=== PATIENT | female | born 2000 | race Caucasian/White ===

== ENCOUNTER 2018-09-23 07:42 | Day surgery (SDC) | payer BC ==
[2018-09-23] MEDS ORDERED: Propofol 200 MG/20 ML SDV IV ONE (07:43)
[2018-09-23] MEDS ORDERED: Lidocaine 2% 100 MG/5 ML Syringe IVPUSH ONE (07:43)
[2018-09-23] MEDS ORDERED: Lactated Ringers 1,000 ML IV SCH (07:45)
--- NOTE | 2018-09-23 10:24 | PCM.OPNOTE ---
- General Post-Op/Procedure Note Date of Surgery/Procedure: 09/23/18 Operative Procedure(s): egd with biospy Findings: gastroduodenitis Pre Op Diagnosis: epigastric abd pain Post-Op Diagnosis: gastroduodenitis Anesthesia Technique: Moderate Sedation Primary Surgeon: Donta Vee Anesthesia Provider: Jorge Hernandez Pathology: stomach and duodenum Complications: None Condition: Good Free Text/Narrative:: see dictation
--- NOTE | 2018-09-23 11:28 | OR ---
DATE OF OPERATION: 09/23/2018 SURGEON: Donta Vee MD PROCEDURE PERFORMED: Esophagogastroduodenoscopy with cold forceps biopsy. PREOPERATIVE DIAGNOSIS: History of epigastric abdominal pain. POSTOPERATIVE DIAGNOSES: Gastroduodenitis. INDICATIONS FOR PROCEDURE: This is a 18-year-old female, who presents with a complaint of some epigastric abdominal discomfort. She was offered and accepted an EGD. DESCRIPTION OF OPERATION: After an excellent IV sedation was administered, bite block was inserted. The flexible endoscope was passed without difficulty down the esophagus and into the stomach. Stomach was insufflated. Scope passed through the pylorus, second portion of duodenum, and slowly withdrawn. The following findings were noted. In the first portion of the duodenum, there appeared to be a patchy area of inflammation. Biopsies were taken and submitted in the container. The stomach demonstrated some diffuse gastritis and multiple biopsies were taken. There was also what appeared to be a hyperplastic polyp, which was submitted in the same container. The esophagus was unremarkable. The patient tolerated the procedure well, was taken to recovery room in good condition. Results by letter. /[id number] /MODL
== END 2018-09-23 11:28 | disposition home or self-care (01) ==
LOC: FB.SDS 07:42
PROVIDERS: ATTEND Surgery
DX: K29.50 Unspecified chronic gastritis without bleeding (principal); K29.90 Gastroduodenitis, unspecified, without bleeding
CPT/HCPCS: 43239; 81025; 88305; 88342; J2001; J2704; J7120

== ENCOUNTER 2019-03-12 07:07 | Day surgery (SDC) | payer BC ==
[2019-03-12] MEDS ORDERED: Glycopyrrolate 0.2 MG/ML 5 ML MDV IV ONE (07:08)
[2019-03-12] MEDS ORDERED: Lactated Ringers 1,000 ML IV ONE (07:08)
[2019-03-12] MEDS ORDERED: Dexamethasone 4 MG/ML 5 ML MDV IVPUSH ONE (07:08)
[2019-03-12] MEDS ORDERED: fentaNYL 100 MCG/2 ML SDV IV ONE (07:08)
[2019-03-12] MEDS ORDERED: Rocuronium 50 MG/5 ML Vial IV ONE (07:08)
[2019-03-12] MEDS ORDERED: Lidocaine 2% 100 MG/5 ML Syringe IVPUSH ONE (07:08)
[2019-03-12] MEDS ORDERED: Ketorolac 30 MG/ML SDV IVPUSH ONE (07:08)
[2019-03-12] MEDS ORDERED: Midazolam 1 MG/ML 2 ML SDV IV ONE (07:08)
[2019-03-12] MEDS ORDERED: Ondansetron 4 MG Tab.DIS PO ONE (07:08)
[2019-03-12] MEDS ORDERED: Propofol 200 MG/20 ML SDV IV ONE (07:08)
[2019-03-12] MEDS ORDERED: Neostigmine Methylsulfate 10 MG/10 ML MDV IVPUSH ONE (07:08)
[2019-03-12] MEDS ORDERED: Lactated Ringers 1,000 ML IV SCH (07:15)
[2019-03-12] MEDS ORDERED: Sodium Chloride 0.9% 10 ML Syringe FLUSH PRN (07:15)
--- NOTE | 2019-03-12 07:54 | PCM.HP.2 ---
H&P History of Present Illness - General Date of Service: 03/12/19 Admit Problem/Dx: Admission Diagnosis/Problem Admission Diagnosis/Problem Laparoscopic cholecystectomy - History of Present Illness Initial Comments - Free Text/Narative: 18 yo wf with a long standing hx of abd pain. This has been variable in terms of location but has tended to favor the right side. Has undergone multiple endoscopies as well as US. Endoscopic exams have been negative. US at [facility] revealed gallbladder polyps. After much discussion pt want to proceed with lap cholecystectomy as this is the only abnl found. - Related Data Allergies/Adverse Reactions: Allergies Allergy/AdvReac Type Severity Reaction Status Date / Time No Known Allergies Allergy Verified 03/12/19 07:41 Home Medications: Home Meds Norgestrel-Ethinyl Estradiol [Elinest-28 Tablet] 1 tab PO DAILY 09/22/18 [ History] Ondansetron [Zofran ODT] 1 tab PO Q4HR PRN 09/22/18 [History] Clindamycin Phosphate [Cleocin T 1% Lotion] 1 applic TP BID 03/11/19 [History] Pantoprazole Sodium [Protonix] 40 mg PO DAILY 03/11/19 [History] Prochlorperazine Maleate [Compazine] 10 mg PO TID PRN 03/11/19 [History] Rizatriptan [Maxalt YARN EXAMINER] 10 mg PO ASDIRECTED PRN 03/11/19 [History] Topiramate [Topamax] 25 mg PO ASDIRECTED 03/11/19 [History] Tretinoin [Retin-A 0.025% Cream] 1 applic TOP BEDTIME 03/11/19 [History] Past Medical History Cardiovascular History: Reports: Other (See Below) Other Cardiovascular History: SINUS TACHYCARDIA, POTS Gastrointestinal History: Reports: Other (See Below) Other Gastrointestinal History: NAUSEA Musculoskeletal History: Reports: Other (See Below) Other Musculoskeletal History: FEMORAL ACETABULAR IMPINGEMENT - Past Surgical History GI Surgical History: Reports: Appendectomy, Hernia Repair/Other, Other (See Below) Other GI Surgeries/Procedures: DIAGNOSTIC LAPROSCOPY, BIOPSY OF PERITONEUM Musculoskeletal Surgical History: Reports: Arthroscopic Procedure Social & Family History - Caffeine Use Caffeine Use: Reports: None H&P Review of Systems - Review of Systems: Review Of Systems: See Below General: Reports: No Symptoms HEENT: Reports: No Symptoms Pulmonary: Reports: No Symptoms Cardiovascular: Reports: No Symptoms Gastrointestinal: Reports: Abdominal Pain, Diarrhea. Denies: Constipation, Nausea, Vomiting Exam - Exam Exam: See Below - Vital Signs Vital Signs: Last Vital Signs Temp 98.8 F 03/12/19 07:35 Pulse 87 03/12/19 07:35 Resp 18 03/12/19 07:35 BP 117/68 03/12/19 07:35 Pulse Ox 100 03/12/19 07:35 Weight: 67.585 kg - Exam General: Alert, Oriented, Cooperative, Mild Distress HEENT: Conjunctiva Clear, Hearing Intact Lungs: Clear to Auscultation, Normal Respiratory Effort Cardiovascular: Regular Rate, Regular Rhythm GI/Abdominal Exam: Normal Bowel Sounds, Tender (ruq) Back Exam: Normal Inspection Skin: Warm, Dry, Intact *Q Meaningful Use (ADM) - VTE *Q VTE Pharmacological Contraindications *Q: Patient Scheduled Surgery - Problem List (1) Gallbladder polyp SNOMED Code(s): 656036234 ICD Code: K82.4 - CHOLESTEROLOSIS OF GALLBLADDER Status: Acute Current Visit: Yes Problem List Initiated/Reviewed/Updated: Yes Orders Last 24hrs: Active Orders 24 hr Category Date Time Status Patient Status [ADT] Routine ADT 03/12/19 07:15 Ordered Patient to Empty Bladder [RC] ASDIRECTED Care 03/12/19 07:15 Active RT Incentive Spirometry [RC] ASDIRECTED Care 03/12/19 07:15 Active Verify Patient Consent Obtain [RC] ASDIRECTED Care 03/12/19 07:15 Active Nothing Per Oral Diet [DIET] Diet 03/11/19 Dinner Ordered HCG QUALITATIVE,URINE [URCHEM] Routine Lab 03/12/19 07:15 Ordered Lactated Ringers [Ringers, Lactated] 1,000 ml Med 03/12/19 07:15 Active IV ASDIRECTED Sodium Chloride 0.9% [Saline Flush] Med 03/12/19 07:15 Active 10 ml FLUSH ASDIRECTED PRN cefOXitin [Mefoxin in Dextrose,Iso-Osm 1 GM/50 ML] 1 gm Med 03/12/19 08:00 Active Premix Bag 1 bag IV ONETIME Peripheral IV Insertion Adult [OM.PC] Routine Oth 03/12/19 07:15 Ordered Sequential Compression Device [OM.PC] Routine Oth 03/12/19 07:15 Ordered Resuscitation Status Routine Resus Stat 03/11/19 10:52 Ordered Medication Orders Cefoxitin Sodium 1 gm/ Premix 50 mls @ 100 mls/hr IV ONETIME ONE Stop: 03/12/19 08:29 Lactated Ringer's (Ringers, Lactated) 1,000 mls @ 125 mls/hr IV ASDIRECTED [place] Sodium Chloride (Saline Flush) 10 ml FLUSH ASDIRECTED PRN PRN Reason: Keep Vein Open Assessment/Plan Comment:: Plan Lap cholecystectomy. procedures and risks explained to the pt and father to include bleeding infection injury to liver, common bile duct, blood vessels and intestines. She also understands this may not take care of her pain. Expressed understanding and asks us to proceed.
[2019-03-12] MEDS ORDERED: cefOXitin 1 GM Vial IVPUSH ONE (08:00)
[2019-03-12] MEDS ORDERED: cefOXitin 1 GM in Premix Bag 1 BAG IV ONE (08:00)
[2019-03-12] MEDS ORDERED: Bupivacaine 0.5% 30 ML SDV INJECT ONE (09:22)
[2019-03-12] MEDS ORDERED: Lidocaine 1% with EPINEPHrine 1:100,000 20 ML MDV INJECT ONE (09:22)
--- NOTE | 2019-03-12 09:57 | PCM.OPNOTE ---
- General Post-Op/Procedure Note Date of Surgery/Procedure: 03/12/19 Operative Procedure(s): lap cholecystectomy Findings: critical view obtained Pre Op Diagnosis: gallbladder polyp Post-Op Diagnosis: Same Anesthesia Technique: General ET Tube, Local (7 ml 1% lido with epi/0.5% buvipicaine) Primary Surgeon: Donta Vee Anesthesia Provider: Jorge Hernandez Pathology: gallbladder Complications: None Condition: Good Free Text/Narrative:: see dictation
[2019-03-12] MEDS ORDERED: Acetaminophen/HYDROcodone 325-5 MG Tab PO PRN (10:01)
--- NOTE | 2019-03-12 17:19 | OR ---
DATE OF OPERATION: 03/12/2019 SURGEON: Donta Vee MD PROCEDURE PERFORMED: Laparoscopic cholecystectomy. PREOPERATIVE DIAGNOSIS: Gallbladder polyp. POSTOPERATIVE DIAGNOSIS: Gallbladder polyp. INDICATIONS FOR PROCEDURE: This is a 18-year-old white female with a history of multiple GI issues including irritable bowel, gastroduodenitis. She has undergone upper and lower endoscopies in the past. On a recent visit to [place], she was noted to have gallbladder polyps, approximately 5 mm in size. She was offered and accepted a laparoscopic cholecystectomy for this condition. INTRAOPERATIVE FINDINGS: One critical view was obtained, 7 mL of 1:1 mixture of 1% lidocaine with epinephrine and 0.5% bupivacaine was used to infiltrate the trocar sites. DESCRIPTION OF OPERATION: After an excellent general anesthetic was administered via endotracheal tube, the patient was prepped and draped in the usual sterile manner. Local was first used to infiltrate a previous laparoscopic site just superior aspect of the umbilicus. An incision was made through the old scar. Blunt dissection was carried out under the midline fascia, which was exposed. Two stay sutures of 0 Vicryl were placed on either side of the midline fascia, which was elevated. The fascia was incised, and the 10.5-mm Austyn trocar was inserted. The patient's abdomen was insufflated to 15 mmHg using carbon dioxide. Under direct visualization, three 5 mm ports were placed, 1 in the midline epigastrium and 2 below the right costal margin at the level of the midclavicular and anterior axillary line. Following technique was used for all three of them. Local was injected, full thickness stab incisions were then carried out, and the trocars were inserted. Gallbladder was noted to be tensed. Excess bile was aspirated with an aspiration needle. The fundus was then grasped and retracted cephaladly. The infundibulum was grasped and careful blunt dissection was carried out exposing the cystic duct and cystic artery. After obtaining the critical view, 2 clips were placed proximally on both these structures and 1 distally. These were then transected. L hook cautery dissection was then used to dissect the gallbladder free from the gallbladder fossa. The specimen was passed into a specimen bag and delivered out through the umbilicus. The area was irrigated and after ensuring excellent hemostasis, 3 trocars were removed under direct visualization, again confirming hemostasis. With release of the pneumoperitoneum, the midline fascial defect was closed. The stay sutures were removed. The skin was closed with interrupted 4-0 Vicryl subcu. The patient tolerated the procedure well and was taken to recovery in good condition. /[id number] /MODL
== END 2019-03-12 11:45 | disposition home or self-care (01) ==
LOC: FB.SDS 07:07
PROVIDERS: ATTEND Surgery
DX: K81.1 Chronic cholecystitis (principal); Z79.899 Other long term (current) drug therapy; Z79.3 Long term (current) use of hormonal contraceptives; Z90.49 Acquired absence of other specified parts of digestive tract
CPT/HCPCS: 36415; 47562; 84702; 88304; A9270; J0694; J1100; J1885; J2001; J2250; J2704; J2710; J3010; J3490; J7120